=== PATIENT | male | born 1990 | race Hispanic/Latino ===

== ENCOUNTER 2018-12-25 15:33 | Observation (INO) | payer OTHER ==
[2018-12-25 15:49] VITALS: BMI 24.3
[2018-12-25] MEDS ORDERED: Sodium Chloride 0.9% 1,000 ML IV STA (15:56)
[2018-12-25] MEDS ORDERED: Morphine 4 mg/ml ISec IVP STA ×2 (16:02→18:05)
[2018-12-25 16:11] LABS: BASO # 0.03 K/mm3 (0.0-2.0); BASO % 0.3 % (0.0-3.0); EOS % 0.3 % (1.5-5.0); LYMPH # 4.7 (1.2-3.4); LYMPH % 40.5 % (22.0-35.0); MEAN CELL VOLUME 89.4 fl (80.0-105.0); MEAN CORPUSCULAR HEMOGLOBIN 31.3 pg (25.0-35.0); MONO # 0.7 (0.1-0.6); MONO % 5.7 % (1.0-6.0); RBC 4.8 10^6/uL (3.5-6.1); RED CELL DISTRIBUTION WIDTH 11.5 % (11.5-14.5); WHITE BLOOD COUNT 11.7 10^3/uL (4.5-11.0)
[2018-12-25 16:19] LABS: ALB/GLOB RATIO 1.4 (1.1-1.8); ALBUMIN 4.8 g/dL (3.0-4.8); ALT/SGPT 17 U/L (7-56); AST/SGOT 30 U/L (17-59); BLOOD UREA NITROGEN 18 mg/dL (7-21); GFR NON-AFRICAN AMERICAN > 60; LIPASE 94 U/L (23-300)
--- NOTE | 2018-12-25 16:40 | ED PDOC ---
Arrival/HPI - General Chief Complaint: Abdominal Pain Time Seen by Provider: 12/25/18 15:36 Historian: Patient - History of Present Illness Narrative History of Present Illness (Text): 12/25/18 16:36 28-year-old male presents today with a sudden onset of right-sided testicular pain radiating to the right flank and right side of the abdomen. Patient states pain started suddenly at 9:00 this morning. Patient is complaining of a sharp stabbing constant pain. Patient denies dysuria or urinary frequency. He denies any penile discharge. Patient states he does have a new sexual partner for the past 2 months. Patient denies nausea or vomiting. No chest pain or shortness of breath. No medications were taken for pain at home. No other complaints. Past Medical History - Provider Review Nursing Documentation Reviewed: Yes - Travel History Have you recently traveled outside [place] w/in the past 3 mons?: No - Tetanus Immunization Tetanus Immunization: Unknown - Psychiatric Hx Substance Use: No - Surgical History Other/Comment: R shoulder - Anesthesia Hx Anesthesia: Yes Hx Anesthesia Reactions: No Hx Malignant Hyperthermia: No Family/Social History - Physician Review Nursing Documentation Reviewed: Yes Family/Social History: Unknown Family HX Smoking Status: Never Smoked Hx Alcohol Use: No Hx Substance Use: No Allergies/Home Meds Allergies/Adverse Reactions: Allergies No Known Allergies Allergy (Verified 12/25/18 15:49) Review of Systems - Review of Systems Constitutional: absent: Fatigue, Fevers ENT: absent: Sore Throat, Epistaxis Respiratory: absent: SOB, Cough Cardiovascular: absent: Chest Pain, Palpitations Gastrointestinal: Abdominal Pain, Nausea. absent: Constipation, Diarrhea, Vomiting Genitourinary Male: Other (right sided testicular pain). absent: Dysuria, Frequency, Hematuria Musculoskeletal: Back Pain (right flank pain) Skin: absent: Rash, Pruritis Neurological: absent: Headache, Dizziness Psychiatric: absent: Anxiety, Depression Physical Exam Vital Signs Reviewed: Yes Vital Signs Temp Pulse Resp BP Pulse Ox 12/25/18 15:33 98.3 F 100 H 18 123/85 100 Temperature: Afebrile Blood Pressure: Normal Pulse: Tachycardic Respiratory Rate: Normal Appearance: Positive for: Well-Appearing, Non-Toxic, Uncomfortable Pain Distress: Moderate Mental Status: Positive for: Alert and Oriented X 3 - Systems Exam Head: Present: Atraumatic Mouth: Present: Moist Mucous Membranes Neck: Present: Normal Range of Motion Respiratory/Chest: Present: Clear to Auscultation, Good Air Exchange. No: Respiratory Distress, Accessory Muscle Use Cardiovascular: Present: Regular Rate and Rhythm, Normal S1, S2. No: Murmurs Abdomen: Present: Tenderness (ruq, rlq tenderness), Normal Bowel Sounds, Guarding. No: Distention, Peritoneal Signs, Rebound Genitourinary Male: Present: Circumcised Penis, Testicle Tenderness (right sided testicular tenderness. high riding. ), Other (chaparoned by Nathanael ER EMT). No: Lesions, Penile Discharge, Penile Swelling, Masses, Erythema, Hernias, Testicle Swelling Back: Present: Normal Inspection, Other (right flank tenderness). No: CVA Tenderness Upper Extremity: Present: Normal Inspection Lower Extremity: Present: Normal Inspection Neurological: Present: GCS=15 Skin: Present: Warm, Dry, Normal Color. No: Rashes Psychiatric: Present: Alert, Oriented x 3 Medical Decision Making ED Course and Treatment: 12/25/18 16:44 Patient is nontoxic well appearing with stable vital signs presenting with severe right-sided testicular pain radiating to the right side of the abdomen and right flank. toradol and morphine given for pain. CBC: 11.7 CMP: wnl Lipase: wnl Urinalysis: + blood Ultrasound testicular; FINDINGS: RIGHT TESTICLE: Measures 4.13 x 1.90 x 2.28 cm. Normal echotexture and flow. RIGHT EPIDIDYMIS: Epididymal head measures 0.98 x 0.69 x 0.74. cm. Grossly unremarkable appearance with normal flow. 2 mm cyst LEFT TESTICLE: Measures 3.74 x 1.93 x 2.01 cm. Normal echotexture and flow. LEFT EPIDIDYMIS: Epididymal head measures 1.0 x 0.79 x 0.44 cm. Grossly unremarkable appearance with normal flow. HYDROCELE: Small bilateral hydroceles VARICOCELE: None. OTHER FINDINGS: None. IMPRESSION: No evidence of testicular torsion CAT scan: FINDINGS: LOWER THORAX: Unremarkable. LIVER: Unremarkable. No gross lesion or ductal dilatation. GALLBLADDER AND BILE DUCTS: Unremarkable. PANCREAS: Unremarkable. No gross lesion or ductal dilatation. SPLEEN: Unremarkable. ADRENALS: Unremarkable. No mass. KIDNEYS AND URETERS: There is a 2 mm stone at the right UVJ. There is mild right-sided hydronephrosis. This is seen on axial image 78 of series 2 and coronal image 67. VASCULATURE: Unremarkable. No aortic aneurysm. No aortic atherosclerotic calcification or mural plaque present. BOWEL: Unremarkable. No obstruction. No gross mural thickening. APPENDIX: Normal appendix. PERITONEUM: Unremarkable. No free fluid. No free air. LYMPH NODES: Unremarkable. No enlarged lymph nodes. BLADDER: Unremarkable. REPRODUCTIVE: Unremarkable. BONES: No acute fracture. OTHER FINDINGS: None. IMPRESSION: There is a 2 mm stone at the right UVJ. There is mild right-sided hydronephrosis. cxr; no free air Patient reassessment: pt with continued pain. vomited in er. zofran and morphine added. Discussed all results with patient/family in depth Case discussed with the hospitalist dr. villavicencio in depth. Excepts observa tional status admission to [facility] for kidney stone, hydronephrosis intractable abdominal pain. Impression: intractable abdominal pain, kidney stone, hydronephrosis admit obs med/surg 12/25/18 18:14 Reassessment Condition: Re-examined, Improving,but remains with symptoms - Lab Interpretations Lab Results: Total Bilirubin 0.6 mg/dL (0.2-1.3) 12/25/18 15:50 AST 30 U/L (17-59) 12/25/18 15:50 ALT 17 U/L (7-56) 12/25/18 15:50 Alkaline Phosphatase 46 U/L (38-126) 12/25/18 15:50 Total Protein 8.3 g/dL (5.8-8.3) 12/25/18 15:50 Albumin 4.8 g/dL (3.0-4.8) 12/25/18 15:50 Globulin 3.5 gm/dL 12/25/18 15:50 Albumin/Globulin Ratio 1.4 (1.1-1.8) 12/25/18 15:50 Lipase 94 U/L (23-300) 12/25/18 15:50 - RAD Interpretation Radiology Orders: 12/25/18 15:55 TESTES DUPLEX COMPLETE [US] Stat 12/25/18 16:22 ABD & PELVIS IV CONTRAST ONLY [CT] Stat - Medication Orders Current Medication Orders: Sodium Chloride (Sodium Chloride 0.9%) 1,000 mls @ 999 mls/hr IV .Q1H1M STA Stop: 12/25/18 16:56 Last Admin: 12/25/18 16:07 Dose: 999 mls/hr eMAR Start Stop Document 12/25/18 16:07 EQ (Rec: 12/25/18 16:08 EQ [id number]) Intravenous Solution Start Date 12/25/18 Start Time 16:08 Discontinued Medications Ketorolac Tromethamine (Toradol) 30 mg IVP STAT STA Stop: 12/25/18 15:57 Last Admin: 12/25/18 16:08 Dose: 30 mg MAR Pain Assessment Document 12/25/18 16:08 EQ (Rec: 12/25/18 16:08 EQ [id number]) Pain Reassessment Is this a pain reassessment? No Sleep Is patient sleeping during reassessment? No Presence of Pain Presence of Pain Yes IVP Administration Document 12/25/18 16:08 EQ (Rec: 12/25/18 16:08 EQ [id number]) Charges for Administration # of IVP Administrations 1 Morphine Sulfate (Morphine) 4 mg IVP STAT STA Stop: 12/25/18 16:03 Last Admin: 12/25/18 16:08 Dose: 4 mg MAR Pain Assessment Document 12/25/18 16:08 EQ (Rec: 12/25/18 16:08 EQ [id number]) Pain Reassessment Is this a pain reassessment? No Sleep Is patient sleeping during reassessment? No Presence of Pain Presence of Pain Yes IVP Administration Document 12/25/18 16:08 EQ (Rec: 12/25/18 16:08 EQ [id number]) Charges for Administration # of IVP Administrations 1 Disposition/Present on Arrival - Present on Arrival Any Indicators Present on Arrival: No History of DVT/PE: No History of Uncontrolled Diabetes: No Urinary Catheter: No History of Decub. Ulcer: No History Surgical Site Infection Following: None - Disposition Have Diagnosis and Disposition been Completed?: Yes Diagnosis: Kidney stone, Intractable abdominal pain, Hydronephrosis Disposition: HOSPITALIZED Disposition Time: 18:12 Patient Plan: Observation Patient Problems: Current Active Problems Problem Status Onset Hydronephrosis Acute Intractable abdominal pain Acute Kidney stone Acute Condition: FAIR Referrals: Abraham Beckham MD [Primary Care Provider] - Follow up with primary Forms: [employer] (Telugu)
[2018-12-25] MEDS ORDERED: Iohexol 350 MG/100 ML VIAL ONE (16:46)
--- NOTE | 2018-12-25 16:53 | US ---
Date of service: 12/25/2018 HISTORY: right testicular pain at 9am TECHNIQUE: Realtime sonography through the scrotum with color and doppler flow. COMPARISON: None Available. FINDINGS: RIGHT TESTICLE: Measures 4.13 x 1.90 x 2.28 cm. Normal echotexture and flow. RIGHT EPIDIDYMIS: Epididymal head measures 0.98 x 0.69 x 0.74. cm. Grossly unremarkable appearance with normal flow. 2 mm cyst LEFT TESTICLE: Measures 3.74 x 1.93 x 2.01 cm. Normal echotexture and flow. LEFT EPIDIDYMIS: Epididymal head measures 1.0 x 0.79 x 0.44 cm. Grossly unremarkable appearance with normal flow. HYDROCELE: Small bilateral hydroceles VARICOCELE: None. OTHER FINDINGS: None. IMPRESSION: No evidence of testicular torsion
--- NOTE | 2018-12-25 17:11 | CT ---
Date of service: 12/25/2018 PROCEDURE: CT Abdomen and Pelvis with contrast HISTORY: right sided abdominal pain/testicular pain/flank COMPARISON: None. TECHNIQUE: Contrast dose: 100 cc of Omni 350 Radiation dose: Total exam DLP = 575.55 mGy-cm. This CT exam was performed using one or more of the following dose reduction techniques: Automated exposure control, adjustment of the mA and/or kV according to patient size, and/or use of iterative reconstruction technique. FINDINGS: LOWER THORAX: Unremarkable. LIVER: Unremarkable. No gross lesion or ductal dilatation. GALLBLADDER AND BILE DUCTS: Unremarkable. PANCREAS: Unremarkable. No gross lesion or ductal dilatation. SPLEEN: Unremarkable. ADRENALS: Unremarkable. No mass. KIDNEYS AND URETERS: There is a 2 mm stone at the right UVJ. There is mild right-sided hydronephrosis. This is seen on axial image 78 of series 2 and coronal image 67. VASCULATURE: Unremarkable. No aortic aneurysm. No aortic atherosclerotic calcification or mural plaque present. BOWEL: Unremarkable. No obstruction. No gross mural thickening. APPENDIX: Normal appendix. PERITONEUM: Unremarkable. No free fluid. No free air. LYMPH NODES: Unremarkable. No enlarged lymph nodes. BLADDER: Unremarkable. REPRODUCTIVE: Unremarkable. BONES: No acute fracture. OTHER FINDINGS: None. IMPRESSION: There is a 2 mm stone at the right UVJ. There is mild right-sided hydronephrosis.
[2018-12-25 17:45] LABS: URINE APPEARANCE SL CLOUDY (CLEAR); URINE BILIRUBIN NEGATIVE (NEGATIVE); URINE BLOOD LARGE (NEGATIVE); URINE COLOR YELLOW (YELLOW); URINE GLUCOSE (UA) NEGATIVE (NEGATIVE); URINE LEUKOCYTE ESTERASE NEGATIVE Leu/uL (NEGATIVE); URINE PROTEIN NEGATIVE mg/dL (<30 mg/dL); URINE UROBILINOGEN 0.2 E.U./dL (<1 E.U./dL)
[2018-12-25 17:58] LABS: URINE RBC TNTC /hpf (0-2)
[2018-12-25 17:59] LABS: URINE BACTERIA FEW /hpf
[2018-12-25] MEDS ORDERED: Sodium Chloride 0.9% 1,000 ML IV SCH (19:30)
[2018-12-25] MEDS ORDERED: Morphine 2 mg/ml ISec IVP PRN (19:32)
--- NOTE | 2018-12-25 20:52 | CP.PCM.HP ---
<Santo Marshall - Last Filed: 12/26/18 06:59> History of Present Illness - History of Present Illness History of Present Illness: Medicine H/P: Joanna, PGY-2 Chief Complaint: Flank pain 28 M with no pertinent medical history presents with 1 day duration of R inguinal pain radiating to the right flank. Patient states that the onset of pain was 10/10 and sudden, but denies any dysuria, hematuria. Patient states relief from pain medications in the ED. ED work up revealed white count of 11.7 and tachycardia at 100 as well as a 2 mm stone in the ureter at UPJ. Of note, patient admits to getting back together with his girlfriend 2 weeks ago, but had a few sexual partners in between; requested STD testing. Review of systems: 12 point ROS obtained and negative except as per HPI Surgical Hx: R shoulder surgery (torn labrum from baseball) Medical Hx: GB polyps Allergies: NKDA Social Hx: Occasional alcohol; Occasional marijuana Home Meds: Vitamin E Family Hx: Non-contributory Present on Admission - Present on Admission Any Indicators Present on Admission: No Past Patient History - Tetanus Immunizations Tetanus Immunization: Unknown - Past Social History Smoking Status: Never Smoked - PSYCHIATRIC Hx Substance Use: No - SURGICAL HISTORY Other/Comment: R shoulder - ANESTHESIA Hx Anesthesia: Yes Hx Anesthesia Reactions: No Hx Malignant Hyperthermia: No Meds Allergies/Adverse Reactions: Allergies Allergy/AdvReac Type Severity Reaction Status Date / Time No Known Allergies Allergy Verified 12/25/18 15:49 Physical Exam - Constitutional Appears: Well - Head Exam Head Exam: ATRAUMATIC, NORMAL INSPECTION, NORMOCEPHALIC - Eye Exam Eye Exam: EOMI, Normal appearance, PERRL Pupil Exam: NORMAL ACCOMODATION, PERRL - ENT Exam ENT Exam: Mucous Membranes Moist, Normal Exam - Neck Exam Neck exam: Positive for: Normal Inspection - Respiratory Exam Respiratory Exam: Clear to Auscultation Bilateral, NORMAL BREATHING PATTERN - Cardiovascular Exam Cardiovascular Exam: REGULAR RHYTHM - GI/Abdominal Exam GI & Abdominal Exam: Normal Bowel Sounds, Soft. absent: Tenderness - Extremities Exam Extremities exam: Positive for: normal inspection - Back Exam Back exam: NORMAL INSPECTION - Neurological Exam Neurological exam: Alert, CN II-XII Intact, Normal Gait, Oriented x3, Reflexes Normal - Psychiatric Exam Psychiatric exam: Normal Affect, Normal Mood - Skin Skin Exam: Dry, Intact, Normal Color, Warm Results - Vital Signs Recent Vital Signs: Last Vital Signs Temp 98.4 F 12/25/18 19:40 Pulse 90 12/25/18 19:40 Resp 18 12/25/18 19:40 BP 124/83 12/25/18 19:40 Pulse Ox 99 12/25/18 19:40 - Labs Result Diagrams: 12/25/18 15:50 12/25/18 15:50 Labs: Laboratory Results - last 24 hr 12/25/18 12/25/18 12/25/18 15:50 15:50 17:30 WBC 11.7 H RBC 4.80 Hgb 15.0 Hct 42.9 MCV 89.4 MCH 31.3 MCHC 35.0 RDW 11.5 Plt Count 351 MPV 9.0 Neut % (Auto) 53.2 Lymph % (Auto) 40.5 H Bradley % (Auto) 5.7 Eos % (Auto) 0.3 L Baso % (Auto) 0.3 Lymph # (Auto) 4.7 H Bradley # (Auto) 0.7 H Eos # (Auto) 0.0 Baso # (Auto) 0.03 Absolute Neuts (auto) 6.22 Sodium 139 Potassium 3.9 Chloride 101 Carbon Dioxide 31 Anion Gap 12 BUN 18 Creatinine 1.0 Est GFR ( Amer) > 60 Est GFR (Non-Af Amer) > 60 Random Glucose 96 Calcium 10.0 Total Bilirubin 0.6 AST 30 ALT 17 Alkaline Phosphatase 46 Total Protein 8.3 Albumin 4.8 Globulin 3.5 Albumin/Globulin Ratio 1.4 Lipase 94 Urine Color Yellow Urine Appearance Sl cloudy Urine pH 7.0 Ur Specific Hancock 1.015 Urine Protein Negative Urine Glucose (UA) Negative Urine Ketones Negative Urine Blood Large H Urine Nitrate Negative Urine Bilirubin Negative Urine Urobilinogen 0.2 Ur Leukocyte Esterase Negative Urine RBC Tntc H Urine WBC 2 - 5 Ur Epithelial Cells 3 - 4 Urine Bacteria Few Assessment & Plan - Assessment and Plan (Free Text) Assessment: 28 M with no pertinent medical hx presenting for 2 mm non-obstructing ureteral stone GB polyps Plan Ureterolithiasis: note that patient has SIRS tachycardia but not SIRS leukocytosis (11.7). These findings are most likely 2/2 pain. At this time, there is no concern for infection, but should monitor 2/2 ureteral stone - Flomax .4 daily, NS @ 150 mls/hr - Morphine 2 q4 PRN with Docusate 100 BID PRN; Zofran 4 q4 PRN - Strain urine for calculi; Strict I/O; Urine Cx - Urology consult - Regular diet Hx GB Polyps - No acute intervention, monitor as an outpatient Prophylaxis - No GI prophylaxis indicated; SCD's <Morgan Nascimento - Last Filed: 12/26/18 20:12> Results - Vital Signs Recent Vital Signs: Last Vital Signs Temp 98.8 F 12/26/18 06:00 Pulse 89 12/26/18 06:00 Resp 20 12/26/18 06:00 BP 110/67 12/26/18 06:00 Pulse Ox 97 12/26/18 06:00 - Labs Result Diagrams: 12/26/18 07:00 12/26/18 07:00 Labs: Laboratory Results - last 24 hr 12/26/18 12/26/18 07:00 07:00 WBC 12.7 H RBC 4.35 Hgb 13.2 L Hct 38.9 L MCV 89.4 MCH 30.3 MCHC 33.9 RDW 11.5 Plt Count 301 MPV 9.2 Neut % (Auto) 83.2 H Lymph % (Auto) 9.2 L Bradley % (Auto) 7.5 H Eos % (Auto) 0.0 L Baso % (Auto) 0.1 Lymph # (Auto) 1.2 Bradley # (Auto) 1.0 H Eos # (Auto) 0.0 Baso # (Auto) 0.01 Absolute Neuts (auto) 10.58 H Sodium 136 Potassium 3.7 Chloride 102 Carbon Dioxide 25 Anion Gap 13 BUN 19 Creatinine 1.5 Est GFR ( Amer) > 60 Est GFR (Non-Af Amer) 56 Random Glucose 103 Calcium 9.0 Attending/Attestation - Attestation I have personally seen and examined this patient.: Yes I have fully participated in the care of the patient.: Yes I have reviewed all pertinent clinical information: Yes
[2018-12-25] MEDS ORDERED: Pneumococcal 23-Valent Vaccine IM ONE (23:17)
[2018-12-25] MEDS ORDERED: Influenza Vaccine 60 mcg/0.5 mL SYR (4YR UP) IM ONE (23:17)
--- NOTE | 2018-12-26 02:42 | CON ---
DATE: 12/26/2018 CHIEF COMPLAINT: Right flank pain. HISTORY OF PRESENT ILLNESS: This is a 28-year-old male admitted with renal colic. CT scan showing a 2-mm right ureterovesical junction stone. Patient has been afebrile with stable vital signs. Patient has been started on Flomax. He has no history of diabetes. No signs of sepsis. There is no indication for emergent urologic surgical intervention. PLAN: The plan should be to control the patient's pain. When that is controlled, the patient can be discharged home on Flomax and analgesics. He is to follow up with Urology in 1 to 2 weeks. Jesse Lamas MD
[2018-12-26 07:55] LABS: BASO # 0.01 K/mm3 (0.0-2.0); BASO % 0.1 % (0.0-3.0); HEMOGLOBIN 13.2 g/dL (14.0-18.0); LYMPH # 1.2 (1.2-3.4); LYMPH % 9.2 % (22.0-35.0); MEAN CELL VOLUME 89.4 fl (80.0-105.0); MEAN CORPUSCULAR HEMOGLOBIN 30.3 pg (25.0-35.0); MEAN CORPUSCULAR HGB CONC 33.9 g/dl (31.0-37.0); MEAN PLATELET VOLUME 9.2 fl (7.0-11.0); MONO % 7.5 % (1.0-6.0); RBC 4.35 10^6/uL (3.5-6.1); RED CELL DISTRIBUTION WIDTH 11.5 % (11.5-14.5); WHITE BLOOD COUNT 12.7 10^3/uL (4.5-11.0)
[2018-12-26 08:00] LABS: BLOOD UREA NITROGEN 19 mg/dL (7-21); GFR NON-AFRICAN AMERICAN 56
[2018-12-26 08:05] VITALS: BP 110/67; PULSE 89; RESP 20; TEMP 98.8; O2SAT 97
--- NOTE | 2018-12-26 08:41 | RAD ---
Date of service: 12/25/2018 HISTORY: abdominal pain COMPARISON: No prior. FINDINGS: LUNGS: No active pulmonary disease. PLEURA: No significant pleural effusion identified, no pneumothorax apparent. CARDIOVASCULAR: No aortic atherosclerotic calcification present. Normal cardiac size. No pulmonary vascular congestion. OSSEOUS STRUCTURES: No significant abnormalities. VISUALIZED UPPER ABDOMEN: Normal. OTHER FINDINGS: None. IMPRESSION: No active disease.
--- NOTE | 2018-12-26 10:38 | CP.PCM.DIS ---
Provider - Provider Date of Admission: 12/25/18 18:10 Attending physician: Arelis Patten MD Primary care physician: Abraham Beckham MD Consults: 12/25/18 19:32 Physician Consult Routine Comment: Consulting Provider: Jesse Lamas Consulting Physician: Jesse aLmas Reason for Consult: nephrolithiasis Time Spent in preparation of Discharge (in minutes): 35 Diagnosis - Discharge Diagnosis (1) Nephrolithiasis Status: Acute (2) Hydronephrosis Status: Acute Hospital Course - Lab Results Lab Results: Most Recent Lab Values WBC 12.7 10^3/uL (4.5-11.0) H 12/26/18 07:00 RBC 4.35 10^6/uL (3.5-6.1) 12/26/18 07:00 Hgb 13.2 g/dL (14.0-18.0) L 12/26/18 07:00 Hct 38.9 % (42.0-52.0) L 12/26/18 07:00 MCV 89.4 fl (80.0-105.0) 12/26/18 07:00 MCH 30.3 pg (25.0-35.0) 12/26/18 07:00 MCHC 33.9 g/dl (31.0-37.0) 12/26/18 07:00 RDW 11.5 % (11.5-14.5) 12/26/18 07:00 Plt Count 301 10^3/uL (120.0-450.0) 12/26/18 07:00 MPV 9.2 fl (7.0-11.0) 12/26/18 07:00 Neut % (Auto) 83.2 % (50.0-68.0) H 12/26/18 07:00 Lymph % (Auto) 9.2 % (22.0-35.0) L 12/26/18 07:00 Holmes % (Auto) 7.5 % (1.0-6.0) H 12/26/18 07:00 Eos % (Auto) 0.0 % (1.5-5.0) L 12/26/18 07:00 Baso % (Auto) 0.1 % (0.0-3.0) 12/26/18 07:00 Lymph # (Auto) 1.2 (1.2-3.4) 12/26/18 07:00 Holmes # (Auto) 1.0 (0.1-0.6) H 12/26/18 07:00 Eos # (Auto) 0.0 (0.0-0.7) 12/26/18 07:00 Baso # (Auto) 0.01 K/mm3 (0.0-2.0) 12/26/18 07:00 Absolute Neuts (auto) 10.58 (1.4-6.5) H 12/26/18 07:00 Sodium 136 mmol/L (132-148) 12/26/18 07:00 Potassium 3.7 mmol/L (3.6-5.0) 12/26/18 07:00 Chloride 102 mmol/L (98-107) 12/26/18 07:00 Carbon Dioxide 25 mmol/L (21-33) 12/26/18 07:00 Anion Gap 13 (10-20) 12/26/18 07:00 BUN 19 mg/dL (7-21) 12/26/18 07:00 Creatinine 1.5 mg/dl (0.8-1.5) 12/26/18 07:00 Est GFR ( Amer) > 60 12/26/18 07:00 Est GFR (Non-Af Amer) 56 12/26/18 07:00 Random Glucose 103 mg/dL (70-110) 12/26/18 07:00 Calcium 9.0 mg/dL (8.4-10.5) 12/26/18 07:00 Total Bilirubin 0.6 mg/dL (0.2-1.3) 12/25/18 15:50 AST 30 U/L (17-59) 12/25/18 15:50 ALT 17 U/L (7-56) 12/25/18 15:50 Alkaline Phosphatase 46 U/L (38-126) 12/25/18 15:50 Total Protein 8.3 g/dL (5.8-8.3) 12/25/18 15:50 Albumin 4.8 g/dL (3.0-4.8) 12/25/18 15:50 Globulin 3.5 gm/dL 12/25/18 15:50 Albumin/Globulin Ratio 1.4 (1.1-1.8) 12/25/18 15:50 Lipase 94 U/L (23-300) 12/25/18 15:50 Urine Color Yellow (YELLOW) 12/25/18 17:30 Urine Appearance Sl cloudy (CLEAR) 12/25/18 17:30 Urine pH 7.0 (4.7-8.0) 12/25/18 17:30 Ur Specific Wittmann 1.015 (1.005-1.035) 12/25/18 17:30 Urine Protein Negative mg/dL (<30 mg/dL) 12/25/18 17:30 Urine Glucose (UA) Negative mg/dL (NEGATIVE) 12/25/18 17:30 Urine Ketones Negative mg/dL (NEGATIVE) 12/25/18 17:30 Urine Blood Large (NEGATIVE) H 12/25/18 17:30 Urine Nitrate Negative (NEGATIVE) 12/25/18 17:30 Urine Bilirubin Negative (NEGATIVE) 12/25/18 17:30 Urine Urobilinogen 0.2 E.U./dL (<1 E.U./dL) 12/25/18 17:30 Ur Leukocyte Esterase Negative Jaspal/uL (NEGATIVE) 12/25/18 17:30 Urine RBC Tntc /hpf (0-2) H 12/25/18 17:30 Urine WBC 2 - 5 /hpf (0-6) 12/25/18 17:30 Ur Epithelial Cells 3 - 4 /hpf (0-5) 12/25/18 17:30 Urine Bacteria Few /hpf (NONE) 12/25/18 17:30 - Hospital Course Hospital Course: 28 year old male with no PMH who presented with right inguinal pain radiating to the flank x1 day. Patient was found to have 2mm stone at UVJ with mild right sided hydronephrosis on CT. Patient was started on IVF, analgesia w/ morphine, Flomax and colace. He responded well, and was asymptomatic this morning. Urine was strained, but no solid stone was passed, only fragments that the patient states he saw. There were no fevers or WBC and his urine is clear. On day of discharge, the patient's symptoms have resolved. He is instructed to follow up with his Dr. Lamas and his PMD (Dr. Triplett). He is prescribed Flomax, and instructed to return to ED if symptoms recur. Discharge Exam - Head Exam Head Exam: ATRAUMATIC, NORMAL INSPECTION, NORMOCEPHALIC - Eye Exam Eye Exam: EOMI, Normal appearance, PERRL Pupil Exam: NORMAL ACCOMODATION, PERRL - ENT Exam ENT Exam: Mucous Membranes Moist - Neck Exam Neck exam: Full Rom - Respiratory Exam Respiratory Exam: Clear to PA & Lateral, NORMAL BREATHING PATTERN, UNREMARKABLE. absent: Rales, Rhonchi, Wheezes, Respiratory Distress - Cardiovascular Exam Cardiovascular Exam: RRR, +S1, +S2. absent: Systolic Murmur - GI/Abdominal Exam GI & Abdominal Exam: Normal Bowel Sounds, Soft. absent: Distended, Guarding, Tenderness - Extremities Exam Extremities exam: normal inspection - Back Exam Back exam: absent: CVA tenderness (L), CVA tenderness (R) - Neurological Exam Neurological exam: Alert, CN II-XII Intact, Normal Gait, Oriented x3, Reflexes Normal - Psychiatric Exam Psychiatric exam: Normal Affect, Normal Mood - Skin Skin Exam: Dry, Intact, Normal Color, Warm Discharge Plan - Discharge Medications Prescriptions: Tamsulosin [Flomax] 0.4 mg PO DAILY #7 cap - Follow Up Plan Condition: FAIR Disposition: HOME/ ROUTINE Instructions: Kidney Stones (DC) Additional Instructions: Please take the Flomax medication as prescribed Please follow up with your primary care doctor, Dr. Triplett, within 3-5 days of discharge Please follow up with your urologist, Dr. Lamas, within 3-5 days of discharge If your symptoms return, or you experience new symptoms, please return to the nearest emergency room Referrals: Kel Triplett MD [Medical Doctor] - Jesse Lamas MD [Staff Provider] -
== END 2018-12-26 13:38 | disposition home or self-care (01) ==
LOC: ED 15:33 → ERH 18:10 → 5RNO 20:26
PROVIDERS: ADMIT Internal Medicine; ATTEND Internal Medicine
DX: N13.2 Hydronephrosis with renal and ureteral calculous obstruction (principal); F12.90 Cannabis use, unspecified, uncomplicated; N50.819 Testicular pain, unspecified; R00.0 Tachycardia, unspecified
CPT/HCPCS: 36415; 71045; 74177; 80048; 80053; 81001; 83690; 85025; 87491; 87591; 93975; 96374; 96375; 99284; G0378; J1885; J2270; J2405; J7030; Q9967